=== PATIENT | female | born 1995 | race American Indian/Alaskan Native ===

== ENCOUNTER 2017-08-14 03:10 | Emergency (ER) | payer OTHER ==
[2017-08-14 04:44] LABS: Alanine Aminotransferase 11 units/L (7-56); Albumin 4.8 g/dL (3.9-5); BUN/Creatinine Ratio 15; Blood Urea Nitrogen 9 mg/dL (7-17); Calcium 9.6 mg/dL (8.4-10.2); Hemolysis Index 15
[2017-08-14 05:48] LABS: Hemoglobin 13.9 gm/dl (10.1-14.3); Red Blood Count 4.23 M/mm3 (3.65-5.03)
[2017-08-14 05:49] LABS: Basophils % (Auto) 0.4 % (0.0-1.8); Eosinophils % (Auto) 0.3 % (0.0-4.3); Hematocrit 41.4 % (30.3-42.9); Lymphocytes # (Auto) 1.6 K/mm3 (1.2-5.4); Lymphocytes % (Auto) 26.8 % (13.4-35.0); Mean Corpuscular HGB Conc 34 % (30-34); Mean Corpuscular Hemoglobin 33 pg (28-32); Mean Corpuscular Volume 98 fl (79-97); Mean Platelet Volume 10.7 fl (6-12); Monocytes # (Auto) 0.6 K/mm3 (0.0-0.8); Monocytes % (Auto) 9.7 % (0.0-7.3); Platelet Count 168 K/mm3 (140-440); Red Cell Distribution Width 12.4 % (13.2-15.2)
[2017-08-14] MEDS ORDERED: NACL 0.9% 1000 ML 1,000 ML IV ONE (07:22)
[2017-08-14] MEDS ORDERED: VITAMIN B-1 100 MG, FOLVITE 1 MG, INFUVITE 10 ML in NACL 0.9% 1000 ML 1,000 ML IV ONE (07:35)
--- NOTE | 2017-08-14 08:01 | Cat Scan Report ---
FINAL REPORT EXAM: CT HEAD/BRAIN WO CON HISTORY: altered mental status TECHNIQUE: Routine axial imaging was obtained of the brain without IV contrast. FINDINGS: There is no evidence of acute stroke or hemorrhage. The ventricular system is appropriate in size and is symmetric. The visualized sinuses are clear. The mastoid air cells are well pneumatized. The calvarium appears intact. IMPRESSION: No acute intracranial process.
[2017-08-14] MEDS ORDERED: TYLENOL PO ONE ×2 (11:28→11:29)
[2017-08-14] MEDS ORDERED: ZOFRAN IV ONE (11:29)
[2017-08-14] MEDS ORDERED: BOOSTRIX IM ONE (11:54)
[2017-08-14] MEDS ORDERED: TENIVAC IM ONE (12:00)
[2017-08-14] MEDS ORDERED: XYLOCAINE 2% INFILTRATI ONE (12:45)
[2017-08-14] MEDS ORDERED: NACL 0.9% 500 ML IR ONE (12:50)
[2017-08-14] MEDS ORDERED: XYLOCAINE 1% MPF 5 mL ONE (12:54)
[2017-08-14 13:07] VITALS: BP 103/65
--- NOTE | 2017-08-14 15:29 | Emergency Department Report ---
HPI - General Chief Complaint: Alcohol Time Seen by Provider: 08/14/17 06:23 - HPI HPI: The patient is a 22-year-old female who presents for evaluation of altered mental status and right hand laceration. The patient complains of mild stinging in quality pain to the right hand since sustaining a laceration in a hotel 12 hours prior to arrival. The patient's mother states that she was found with altered mental status lying on the ground at a hotel that she went to with friend's to consume alcohol. The patient denies fever, head injury, headache, neck pain, neck stiffness, vision or hearing changes, smell or taste changes, paresthesias, facial drooping, slurred speech, seizure-like activity, urine or bowel incontinence or retention, or other focal neurological deficit. ED Past Medical Hx - Past Medical History Previous Medical History?: No - Surgical History Past Surgical History?: No - Social History Smoking Status: Unknown if ever smoked Substance Use Type: Alcohol ED Review of Systems ROS: Stated complaint: ETOH, ALTERED Other details as noted in HPI Constitutional: denies: fever ENT: denies: throat or neck pain Respiratory: denies: cough, shortness of breath Cardiovascular: denies: chest pain Endocrine: denies unexplained weight loss or gain Gastrointestinal: denies: abdominal pain, nausea Genitourinary: denies: dysuria Musculoskeletal: reports hand lac denies: leg swelling Skin: denies: rash Neurological: denies: headache Hematological/Lymphatic: denies: easy bleeding or easy bruising Psych: denies sadness or hopelessness Physical Exam - Physical Exam Vital Signs: Vital Signs 08/14/17 08/14/17 08/14/17 03:26 05:30 07:30 Temperature 98 F 98.5 F 98.6 F Pulse Rate 106 H 86 96 H Respiratory 18 16 14 Rate Blood Pressure 99/48 99/42 [Left] O2 Sat by Pulse 98 98 96 Oximetry 08/14/17 08/14/17 08/14/17 08:30 09:30 10:30 Temperature 98.9 F Pulse Rate 94 H 89 84 Respiratory 14 14 16 Rate Blood Pressure 104/58 98/58 96/47 [Left] O2 Sat by Pulse 98 95 99 Oximetry 08/14/17 13:06 Temperature Pulse Rate 80 Respiratory 16 Rate Blood Pressure 103/65 [Left] O2 Sat by Pulse 100 Oximetry Physical Exam: General: well-nourished, well-developed, no acute distress, smells of alcohol Head: Normocephalic, atraumatic Eyes: normal sclera ENT: Mucous membranes are pale and dry, EOMI, PERRL Neck: No neck stiffness, no cervical adenopathy Respiratory: Breath sounds equal bilaterally, no wheezing, rales, or rhonchi Cardio: S1 and S2 present, no murmurs, rubs, gallops, capillary refill is delayed Abdomen: Normoactive bowel sounds, soft abdomen, no rigidity, no guarding or rebound tenderness Chest WALL/Back: No tenderness to palpation of the chest wall, no CVA tenderness with percussion Musc: No pitting edema Skin: No rash Neuro: Patient drowsy, gag reflex intact, protecting airway, no gross sensation or motor deficits on neuro exam Psych: Normal affect ED Course Vital Signs 08/14/17 08/14/17 08/14/17 03:26 05:30 07:30 Temperature 98 F 98.5 F 98.6 F Pulse Rate 106 H 86 96 H Respiratory 18 16 14 Rate Blood Pressure 99/48 99/42 [Left] O2 Sat by Pulse 98 98 96 Oximetry 08/14/17 08/14/17 08/14/17 08:30 09:30 10:30 Temperature 98.9 F Pulse Rate 94 H 89 84 Respiratory 14 14 16 Rate Blood Pressure 104/58 98/58 96/47 [Left] O2 Sat by Pulse 98 95 99 Oximetry 08/14/17 13:06 Temperature Pulse Rate 80 Respiratory 16 Rate Blood Pressure 103/65 [Left] O2 Sat by Pulse 100 Oximetry - Laceration /Wound Repair Right Hand Wound Location: upper extremity Wound Length (cm): 2 Wound's Depth, Shape: superficial, linear Wound Explored: clean Irrigated w/ Saline (ccs): 250 Betadine Prep?: Yes Anesthesia: 1% Lidocaine Volume Anesthetic (ccs): 4 Wound Debrided: minimal Wound Repaired With: sutures Suture Size/Type: 5:0, nylon Number of Sutures: 3 Layer Closure?: No Sterile Dressing Applied?: Yes Progress: Patient tolerated well without complication ED Medical Decision Making - Lab Data Result diagrams: 08/14/17 04:03 08/14/17 04:03 - Medical Decision Making The patient was seen and examined by myself. The patient is placed on a classroom monitor and continuous pulse ox. On initial evaluation, the patient was found to be in no distress. Evaluation orders were placed. The patient given a tetanus immunization. The patient is given normal saline fluid bolus and banana bag infusion for treatment of her dehydration. Lab results revealed elevated EtOH, and otherwise were not concerning including normal preg test. CT scan of the head is negative for intracranial disease process. Laceration repair was performed. The patient was reevaluated and reported that her pain was resolved. The patient was monitored in the emergency department for greater than 4 hours. Her mother states that she appears back to her normal baseline mental status carmichael. The patient is now alert oriented 3, without any neuro deficits on neuro exam. The patient is stable for discharge with outpatient follow-up. The patient is given follow-up and return instructions. The patient expressed understanding and agreed with the plan. The patient is discharged in stable condition. Critical care attestation.: If time is entered above; I have spent that time in minutes in the direct care of this critically ill patient, excluding procedure time. ED Disposition Clinical Impression: Laceration without foreign body of right hand, initial encounter, Alcohol intoxication delirium, Dehydration Disposition: DC-01 TO HOME OR SELFCARE Is pt being admited?: No Does the pt Need Aspirin: No Condition: Stable Instructions: Laceration (ED), Suture Care (ED), Alcohol Intoxication (ED) Additional Instructions: Follow-up with your primary care provider or return to the medical facility in 10-14 days for removal of your stitches. Referrals: NELSON STEPHENSON MD [Primary Care Provider] - 3-5 Days Forms: Accompanied Note Time of Disposition: 15:24
== END 2017-08-14 15:55 | disposition home or self-care (01) ==
LOC: ED 03:10
DX: S61.411A Laceration without foreign body of right hand, initial encounter (principal); E86.0 Dehydration; F10.121 Alcohol abuse with intoxication delirium; W18.30XA Fall on same level, unspecified, initial encounter; Y93.89 Activity, other specified; Y99.8 Other external cause status; Y92.89 Other specified places as the place of occurrence of the external cause
CPT/HCPCS: 12001; 36415; 70450; 80053; 82550; 83735; 84703; 85025; 90471; 90715; 93005; 93010; 96361; 96365; 96366; 96375; 99285; G0480; J2405; J3411; J7030; 80320; 90714